=== PATIENT | male | born 2005 | race Two or more races ===

== ENCOUNTER 2024-12-26 21:42 | Emergency (ER) | payer MEDICAID, SELFPAY ==
[2024-12-26 21:43] VITALS: BP 139/85; PULSE 80; RESP 17; TEMP 37; O2SAT 100; BMI 24.2
--- NOTE | 2024-12-26 21:55 | EDNOTE_ITS ---
ED Wound/Laceration-RME/HPI General Chief Complaint: Wound/Laceration Stated Complaint: LAC OVER R EYEBROW Time Seen by Provider: 12/26/24 21:53 Arrival date/time: 12/26/24 21:42 19M with no significant PMH presents to ED with R eyebrow lac after he accidentally hit his head against a table. Patient is unclear of last tetanus, but he declines administration today. Limitations: no limitations Related Data Allergies Allergy/AdvReac Type Severity Reaction Status Date / Time Penicillins Allergy Unknown Verified 12/26/24 21:46 Review of Systems Review of Systems Systems Reviewed: All systems reviewed, normal except as documented Integumentary/Breasts Skin/Breast: Reports as per HPI and Reports skin pain Past Medical History Social History SMOKING STATUS: Never smoker ED Exam General Limitations: Present no limitations General appearance: Present alert and in no apparent distress Expanded Head Exam Head exam physical: Present laceration (1 cm R eyebrow) Neck Neck exam: Present normal inspection, full ROM and trachea midline Chest Chest inspection: Present normal inspection and symmetric chest wall rise Neurological Exam Neurological exam: Present alert and oriented X3 Psychiatric Psychiatric exam: Present normal affect and normal mood Skin Skin exam: Present warm, dry, intact and normal color Course Quality Measures none Orders Category Date Time Status Set Up Suture Tray STAT Care 12/26/24 21:53 Active Wound Care NOW Care 12/26/24 21:53 Active Vital Signs Vital signs: Vital Signs Temperature 98.6 F 12/26/24 21:43 Pulse Rate 80 12/26/24 21:43 Respiratory Rate 17 12/26/24 21:43 Blood Pressure 139/85 H 12/26/24 21:43 Pulse Oximetry (%) 100 12/26/24 21:43 Oxygen Delivery Method Room Air 12/26/24 21:43 O2 at 100% on RA and WNLs Wound / Laceration MDM Narrative MDM Narrative:: 19M with no significant PMH presents to ED with R eyebrow lac after he accidentally hit his head against a table. Patient is unclear of last tetanus, but he declines administration today. Physical exam reveals 1 cm lac on R eyebrow. Speech normal. Gait normal. Patient is afebrile, calm, and alert. Wound cleaned/irrigated and closed with 3 stitches. Given certified substance abuse counselor to have them removed in about 7 days. Patient data External records reviewed:: [facility] previous records Clinical information provided by:: patient Social determinants that could affect healthcare access:: none Patient has the following chronic illnesses:: none How is presenting disease/condition affected by chronic disease/condition?: no chronic disease Evaluation data The following diagnostics were reviewed and interpreted by me:: other (specify) (none) Lab and/or radiology exams considered but not ordered:: not ordered Interpretation Summary: n/a Medications / Prescriptions Medications or Prescriptions considered but not ordered:: not ordered Medication administrations:: n/a Consultations Consultation(s) initiated? (list below): No Diagnosis Wound Differential Diagnosis: laceration, abrasion, avulsion of skin and other (CHI) Most likely diagnosis given after review of the tests above:: laceration and CHI Admission Indicated Admission indicated?: not indicated Admission Request Was there a request for admission?: No Disposition Plan Disposition Plan: Discharge Discharge Attestation Discharge Attestation: The patient and all family members were given an opportunity to ask questions and understood the discharge instructions. Discharge instructions specifically effects, indications for sooner follow up or return to the emergency department, and the expected course of current diagnosis. Patient condition: Stable Discharge Plan Plan Patient Disposition: HOME (Self Care) Discharge Disposition comment: Stable Prescriptions/Referrals Referrals: No Primary/Family,Physician [Primary Care Provider] - In 1 week Problem List Clinical Impression: Laceration, CHI (closed head injury) Patient/Caregiver Discharge Instructions Education Materials: ED Head Injury with Sleep ..., ED Laceration, Face: Stitches or Tape Additional Instructions: Please follow-up with PCP within 24-48 hours and return immediately if symptoms worsen. For the next 24-48 hours, watch for unexplained nausea/vomiting, confusion, lethargy, not acting like yourself, and seizures. Have stitches removed in about 7 days. Print Language: Burmese Stand Alone Forms: Patient Portal Info Letter HIPOLITO/JACKSON Supervising Physician HIPOLITO/JACKSON Supervising Physician: Dr. Archuleta
== END 2024-12-26 23:47 | disposition home or self-care (01) ==
PROVIDERS: Emergency Provider Emergency Medicine
DX: S01.111A Laceration without foreign body of right eyelid and periocular area, initial encounter (principal); W22.03XA Walked into furniture, initial encounter
CPT/HCPCS: 12001; 99283